=== PATIENT | female | born 1995 | race Caucasian/White ===

== ENCOUNTER 2021-04-12 19:39 | Emergency (ER) | payer OTHER, SELFPAY ==
[2021-04-12 19:54] VITALS: BP 111/62; PULSE 113; RESP 18; TEMP 36.5; O2SAT 98; BMI 27.4
[2021-04-12 21:03] VITALS: RESP 18
--- NOTE | 2021-04-12 22:20 | ED.PSYCH ---
HPI - Psych General Chief Complaint: Psychiatric Symptoms Stated Complaint: section 12 Time Seen by Provider: 04/12/21 22:14 Source: patient Mode of arrival: EMS Limitations: no limitations History of Present Illness HPI Narrative: 26-year-old female with no significant past medical history who presents via EMS after her mother called 911 because she went to her apartment and could not wake her up. Mom told EMS that she found a note in her daughter's journal stating that she wants to sleep and never wake up. When I questioned patient about this she states she was told by her therapist to make list of good things and list of bad things going on in her life and that is all she did. She states she has no suicidal ideations, homicidal ideations, she states she has no plan to hurt herself and she has never hurt herself before. She does not have access to any weapons. She has no history of cutting. She does see a therapist and takes Lexapro daily. Patient states she is attending two different colleges and has a 4.0 GPA, she is also personal trainer. She states she area has several good things going on in her life right now. Patient denies any drug or alcohol use today. Related Data Home Medications Medication Instructions Recorded Confirmed escitalopram oxalate [Lexapro] 1 tab PO DAILY 04/12/21 04/12/21 lorazepam 1 - 2 tab PO DAILY PRN 04/12/21 04/12/21 trazodone 1 tab PO BEDTIME 04/12/21 04/12/21 Allergies Allergy/AdvReac Type Severity Reaction Status Date / Time Penicillins [PCN] Allergy Unknown UNKNOWN Verified 04/12/21 20:03 Review of Systems Review of Systems: Yes all other systems are reviewed and are negative [facility] Social History Social History Advance Directives: No Advance Directives Information Provided: No Patient : No Physical Exam Vital Signs: Vital Signs: Last Vital Signs Temp 97.7 F 04/12/21 19:54 Pulse 113 H 04/12/21 19:54 Resp 18 04/12/21 21:03 BP 111/62 04/12/21 19:54 Pulse Ox 98 04/12/21 19:54 Body Mass Index 27.4 Const: Other: Pleasant General: cooperative, healthy appearing, comfortable and no acute distress Nutritional Appearance: average body habitus Orientation/consciousness: patient oriented x3 HENMT: Head: Yes normal to inspection Eyes: General: appearance normal, both eyes and all related structures Neck: Neck: Yes normal visual inspection, Yes full ROM and Yes supple Resp: Effort & Inspection: normal respiratory effort and able to speak in complete sentences Skin: Lesions: lesion noted (small scars all over the body, very small, well-healed, no signs of infec) Neuro: General: patient oriented x3 Cognition (Neuro): normal cognition Gait exam (Neuro): Normal gait present Psych: Appearance: grossly normal Mental Status: mental status grossly normal Speech and movement: Normal speech and movement present Affect: normal affect Attitude: cooperative Thought process: Normal thought process present Thought content: Normal thought content present, suicidality and no homicidality Insight: Good insight present (Psych) Judgement: Good judgement present (Psych) Course Course Course Narrative: 26-year-old female with no significant past medical history who presents via EMS after her mother called 911 because she went to her apartment and could not wake her up. Mom told EMS that she found a note in her daughter's journal stating that she wants to sleep and never wake up. VSS. Patient denies SI, HI or plan. Patient is very pleasant, speaks about her future and her Education with enthusiasm. Will get a crisis consult, likely discharge home with follow-up to her existing therapist. Will get GARSIA. Reevaluation(s) Reevaluation #1: GARSIA negative, other from the Care team's for with patient, she agrees patient is not suicidal risk, very high functioning, future oriented young lady with an existing therapist taking her depression medication daily. Will discharge with follow-up to therapist. MDM - Psych Lab Data Labs: Lab Results 04/12/21 04/12/21 Range/Units 22:48 22:48 Urine Test NEGATIVE (NEGATIVE) Urine Opiates Screen Not Detected (Not Detect) Ur Barbiturates Screen Not Detected (Not Detect) Ur Phencyclidine Scrn Not Detected (Not Detect) Ur Amphetamines Screen Not Detected (Not Detect) U Benzodiazepines Scrn Not Detected (Not Detect) Urine Cocaine Screen Not Detected (Not Detect) U Marijuana (THC) Screen Not Detected (Not Detect) Discharge Plan Discharge Clinical Impression: Acute anxiety Patient Disposition: Home, Self-Care Instructions: Depression (ED), Anxiety (ED) Additional Instructions: Please be sure to follow-up with your therapist. If you have any thoughts of harming yourself or anyone else, please call 911 right away. Prescriptions: No Action trazodone 50 mg tablet 1 tab PO BEDTIME RF: 0 lorazepam 1 mg tablet 1 - 2 tab PO DAILY PRN (Reason: Anxiety) RF: 0 escitalopram oxalate [Lexapro] 10 mg tablet 1 tab PO DAILY RF: 0
[2021-04-12 22:58] LABS: Urine Pregnancy NEGATIVE (NEGATIVE)
[2021-04-12 22:59] LABS: UPreg QC Valid YES
[2021-04-12 23:17] LABS: Amphetamine Screen Urine Not Detected (Not Detect); Barbiturates, Urine Not Detected (Not Detect); Benzodiazepines Screen Urine Not Detected (Not Detect); Cannabinoid Screen Urine Not Detected (Not Detect); Cocaine Screen Urine Not Detected (Not Detect); Opiate Screen Urine Not Detected (Not Detect); Phencyclidine Screen Urine Not Detected (Not Detect)
--- NOTE | 2021-04-13 00:21 | PC.NURSE ---
JEN faxed and called.
--- NOTE | 2021-04-13 00:25 | MHC.CARE ---
[facility] unable to provide a clinician to complete evaluation until the morning shift. CARE team met with pt to screen level of risk for harm to self or others. Pt was pleasant on approach, with euthymic mood and congruent affect, observed to also be anxious and restless, which pt expressed as being due to the situation she has found herself in. 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 At the recommendation of her therapist, pt has been using her journal to express negative thoughts, the darkest thoughts I could possibly have, and then follow this with positive and optimistic thoughts. Pt indicated that she opted to listen to music and take a nap before writing the positive thoughts portion of her journal entry. When her mother showed up to the pt's apartment and found her sleeping, with her headphones on, and after seeing the journal entry the pt's mother contacted 911 for fear that the pt had harmed herself, as she wasn't waking up when her mother poked her. Pt denied experiencing any thoughts of or suicide, denied history of suicidality or engagement in self harm, and denied any thoughts or urges to harm others. No signs or symptoms of psychosis or disturbances of thought or perception were observed or reported. Pt has a therapist through [facility], however is in the process of transferring to the [facility]. With regards to med compliance, pt had missed the last two doses of her prescribed lexapro, which she resumed taking the medication today. CARE team consulted with ED provider who agreed that pt is safe for discharge and does not require further behavioral health evaluation or stabilization at this time.
== END 2021-04-13 00:55 | disposition home or self-care (01) ==
PROVIDERS: Physician Assistant; Emergency Provider Internal Medicine
DX: F41.1 Generalized anxiety disorder (principal); F43.0 Acute stress reaction; Z79.899 Other long term (current) drug therapy
CPT/HCPCS: 80307; 81025; 99283

== ENCOUNTER 2021-04-29 17:53 | Emergency (ER) | payer OTHER, SELFPAY ==
--- NOTE | 2021-04-29 | ECG_ITS ---
Test Reason : SOB Blood Pressure : / mmHG Vent. Rate : 126 BPM Atrial Rate : 126 BPM P-R Int : 112 ms QRS Dur : 068 ms QT Int : 318 ms P-R-T Axes : 076 032 -10 degrees QTc Int : 460 ms Sinus tachycardia Nonspecific ST and T wave abnormality Abnormal ECG No previous ECGs available Referred By: Martha Hatfield Electronically Signed By:Joe Sullivan
--- NOTE | ~2021-04-29 | XR_ITS ---
EXAMINATION: PORTABLE CHEST 1 VIEW CLINICAL INFORMATION: wheezing . COMPARISON: No recent pertinent prior studies are available for comparison. TECHNIQUE: Portable frontal view of the chest was obtained. FINDINGS: The lungs are well expanded. Mild increased perihilar markings right more than left. No superimposed focal infiltrate, effusion, edema, or pneumothorax. Cardiac and mediastinal silhouettes are within normal limits for technique. No acute bony abnormality seen. XR/XR chest 1V IMPRESSION: Mild increased perihilar markings right more so than left. Etiology of this is uncertain. Small airways disease would be possible. Early infiltrate considered less likely. Consider short interval follow-up chest x-ray as needed.
[2021-04-29 18:00] VITALS: BP 141/52; PULSE 131; RESP 38; O2SAT 99; BMI 23.5
[2021-04-29] MEDS: Magnesium Sulfate/H2O 2 GM/50 ML PIGGYBACK IV (18:04)
[2021-04-29 18:10] VITALS: PULSE 126; O2SAT 96
[2021-04-29] MEDS: Albuterol Sulfate (0.083%) 2.5 MG/3 ML VIAL.NEB 10 MG INHALE (18:10)
[2021-04-29 18:16] LABS: MANUAL DIFF FLAG NO
[2021-04-29 18:18] LABS: Basophils Percent Auto 0.3 % (0-2); Eosinophils Absolute Auto 0.6 X10*3/uL (0.0-0.4); Eosinophils Percent Auto 5.2 % (0-4); Hematocrit 40.6 % (37-47); Hemoglobin 13.5 g/dl (12.0-16.0); Imm Gran Abs Auto 0.04 X10*3/uL (0.00-0.03); Imm Gran Pct Auto 0.3 % (0.0-0.4); Lymphocytes Absolute Auto 3.8 X10*3/uL (1.2-4.9); Mean Corpuscular HGB Conc 33.3 g/dl (31.0-35.0); Mean Corpuscular Hemoglobin 28.2 pg (27.0-33.0); Mean Corpuscular Volume 84.8 fL (80-98); Mean Platelet Volume 9.2 fL (9.4-12.3); Monocytes Absolute Auto 0.7 X10*3/uL (0.1-1.2); Monocytes Percent Auto 5.7 % (2-11); Neutrophils Absolute Auto 6.3 X10*3/uL (2.0-8.3); Neutrophils Percent Auto 55.5 % (45-73); Platelet Count 347 X10*3/uL (160-400); Red Blood Count 4.79 X10*6/uL (4.20-5.50); Red Cell Distribution Width 12.7 % (11.0-16.0); White Blood Count 11.4 X10*3/uL (4.8-10.8)
--- NOTE | 2021-04-29 18:21 | PC.NURSE ---
Pt developed rash w/ hives over all extremities- given 50mg Iv Benadryl, no further respiratory distress, less i/e wheezing noted.
[2021-04-29] MEDS: diphenhydrAMINE HCL 50 MG/ML VIAL IVPUSH (18:22)
[2021-04-29 18:31] LABS: COVID-19 Test Negative (Negative); IDNOW Serial# 9DD0AD1C
[2021-04-29 18:47] LABS: Alanine Aminotransferase 18 U/L (0-31); Albumin Level 3.7 g/dL (3.5-5.0); Alkaline Phosphatase 80 U/L (39-117); Anion Gap 11 (12-20); Aspartate Amino Transferase 24 U/L (5-31); Bilirubin Total 0.6 mg/dL (0.0-1.0); Blood Urea Nitrogen 8 mg/dL (9-16); Calcium 8.6 mg/dL (8.4-10.2); Carbon Dioxide 24 mmol/L (22-29); Chloride 106 mmol/L (96-108); Creatinine Clr Calc Pharmacy 104.4; Estimated Glomerular Filt Rate > 60; Glucose Random 191 mg/dL (60-115); Potassium 3.4 mmol/L (3.3-5.1); Sodium 138 mmol/L (135-145); Total Protein 6.2 g/dL (6.5-8.0)
--- NOTE | 2021-04-29 19:28 | ED_ITS ---
HPI - Asthma General Chief Complaint: Asthma Stated Complaint: Asthma Attack Time Seen by Provider: 04/29/21 18:01 Source: patient and EMS Mode of arrival: EMS Limitations: no limitations History of Present Illness HPI Narrative: 26 y/o female with history of asthma, depression, anxiety who presents to the ER with acute onset of SOB and wheezing that started when she woke up from a nap today. 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 She reports feeling at her baseline health when she went to bed. At baseline she uses her rescue albuterol inhaler a couple times per week. Triggers are environmental allergies. When she woke up today she had shortness of breath, audible wheezing and coughing, dry. She used in her inhaler and waited about 20 minutes but had no improvement so her girlfriend called 911. On EMS arrival she was in moderate respiratory distress with RR in the 30s and she was hypoxic to 78% on room air. She was drooling. She was given IM epinepherine, 125 mg IV solumedrol and a duoneb en route. She arrives to the ER tachycardic 120s, RR 30s with audible wheezing. She is able to answer questions appropriately in 2-3 word sentences. MD complaint: shortness of breath and wheezing Onset (ago): hour(s) (1) Severity: severe and worse than usual Context: allergen exposure Associated symptoms: dry cough and chest pain Asthma History: childhood onset Treatments Prior to Arrival: inhaled bronchodilator Related Data Current Asthma Therapy: inhaled bronchodilator Home Medications Medication Instructions Recorded Confirmed escitalopram oxalate [Lexapro] 1 tab PO DAILY 04/12/21 04/12/21 lorazepam 1 - 2 tab PO DAILY PRN 04/12/21 04/12/21 trazodone 1 tab PO BEDTIME 04/12/21 04/12/21 Previous Rx's Medication Instructions Recorded albuterol sulfate 1.25 mg INHALATION Q4-6H PRN #15 ml 04/29/21 albuterol sulfate [ProAir HFA] 2 puff INHALATION Q6H PRN #6.7 g 04/29/21 prednisone 10 mg PO PER PKG DIR #48 ea 04/29/21 Allergies Allergy/AdvReac Type Severity Reaction Status Date / Time Penicillins [PCN] Allergy Unknown UNKNOWN Verified 04/12/21 20:03 Review of Systems Review of Systems: Constitutional: No Fever, No Chills ENT/Mouth: No sore throat, No Rhinorrhea, No Swallowing Difficulty Eyes: No Eye Pain, No Swelling, No Redness Cardiovascular: + Chest Pain, + SOB, No Orthopnea, No Edema Respiratory: + Cough, No Sputum, + Wheezing, + dyspnea Gastrointestinal: No Nausea, No Vomiting, No Diarrhea, No abdominal Pain, No Hematochezia, No Melena Genitourinary: No Dysuria, No Urinary Frequency, No Hematuria Musculoskeletal: No joint pain, No Myalgias Skin: No Skin Lesions, No rash Neuro: No Weakness, No Numbness, No Dizziness, No Headache Psych: + Anxiety/Panic, No Depression Heme/Lymph: No Bruising, No Lymphadenopathy Endocrine: No Polyuria, No Polydipsia PMFSH Past Medical History Attestation statement: The following information was validated with the patient. Medical History (Updated 04/29/21 @ 20:42 by BOB Ferrari) Allergies Asthma Social History Social History Advance Directives: No Advance Directives Information Provided: Yes Patient : No Physical Exam Vital Signs: Vital Signs: Last Vital Signs Pulse 108 H 04/29/21 19:59 Resp 18 04/29/21 19:59 BP 99/54 L 04/29/21 19:59 Pulse Ox 100 04/29/21 19:59 Body Mass Index 23.5 Appearance: Alert. Oriented X3. No acute distress. Eyes: Pupils equal, round and reactive to light. ENT: Pharynx normal. Neck: Normal inspection. Neck supple. CVS: Tachycardic, regular rhythm. Pulses normal. Respiratory: Moderate respiratory distress with RR high 20-low 30's. Diffuse inspiratory and expiratory wheezes throughout, prolonged expiratory phase. Abdomen: Soft and nontender. +BS x4 Skin: Skin warm and dry. Normal skin color. Normal skin turgor. No rashes. Extremities: No lower extremity edema. Neuro: Oriented X 3. No motor deficit. No sensory deficit. Course Course Course Narrative: 26 y/o female with history of asthma presenting with acute onset of SOB and wheezing that started today. Hypoxic and in respiratory distress on EMS arrival. Arrives on NRB, SpO2 100% with diffuse wheezing. Mg++, hour long albuterol ordered. CXR, EKG and lab workup. Reevaluation(s) Reevaluation #1: Reassessed in the middle of her nebulizer treatment. Wheezing already starting to improve but patient developed diffuse urtacaria on her thighs, itchy. IV Benadryl ordered. She has had hives a few times in the past, cause unknown. She reports burning in her throat with the neb but no sensation of throat swelling. No facial swelling. Will continue to monitor closely. Reevaluation #2: Significant improvement in respiratory status. Now on RA with SPO2 98%. Speaking in complete sentences. Wheezing mostly resolved, slight residual wheeze in LLL. She has been monitored in the ER for 3 hours and she is greatly improved. She would like to go home. Will treat for asthma exacerbation with PO prednisone taper and give new refills for her neb and inhaler both of which are . Encouraged to f/u with Pulm. Patient agrees with plan. MDM - Asthma Differential Diagnosis Differential diagnosis: Likely Acute exacerbation and Status asthmaticus Lab Data Attestation: I reviewed the patient's lab results. Result diagrams: 04/29/21 18:12 04/29/21 18:12 Labs: Lab Results 04/29/21 04/29/21 04/29/21 Range/Units 18:12 18:12 18:12 WBC 11.4 H (4.8-10.8) X10*3/uL RBC 4.79 (4.20-5.50) X10*6/uL Hgb 13.5 (12.0-16.0) g/dl Hct 40.6 (37-47) % MCV 84.8 (80-98) fL MCH 28.2 (27.0-33.0) pg MCHC 33.3 (31.0-35.0) g/dl RDW 12.7 (11.0-16.0) % Plt Count 347 (160-400) X10*3/uL MPV 9.2 L (9.4-12.3) fL Immature Gran % (Auto) 0.3 (0.0-0.4) % Neut % (Auto) 55.5 (45-73) % Lymph % (Auto) 33.0 (20-40) % Jay % (Auto) 5.7 (2-11) % Eos % (Auto) 5.2 H (0-4) % Baso % (Auto) 0.3 (0-2) % Lymph # (Auto) 3.8 (1.2-4.9) X10*3/uL Jay # (Auto) 0.7 (0.1-1.2) X10*3/uL Eos # (Auto) 0.6 H (0.0-0.4) X10*3/uL Baso # (Auto) 0.0 (0.0-0.2) X10*3/uL Abs Immat Gran (auto) 0.04 H (0.00-0.03) X10*3/uL Absolute Neuts (auto) 6.3 (2.0-8.3) X10*3/uL Absolute Nucleated RBC 0.000 (0.0-0.012) X10*3/uL Nucleated RBC % (auto) 0.0 (0.0-0.2) /100WBC Sodium 138 (135-145) mmol/L Potassium 3.4 (3.3-5.1) mmol/L Chloride 106 (96-108) mmol/L Carbon Dioxide 24 (22-29) mmol/L Anion Gap 11 L (12-20) BUN 8 L (9-16) mg/dL Creatinine 0.78 (0.5-1.4) mg/dL Estim Creat Clear Calc 104.4 Estimated GFR > 60 Random Glucose 191 H (60-115) mg/dL Calcium 8.6 (8.4-10.2) mg/dL Total Bilirubin 0.6 (0.0-1.0) mg/dL AST 24 (5-31) U/L ALT 18 (0-31) U/L Alkaline Phosphatase 80 (39-117) U/L Troponin I High Sens (<3.5-17.0) ng/L Total Protein 6.2 L (6.5-8.0) g/dL Albumin 3.7 (3.5-5.0) g/dL COVID-19 (ZENOBIA) Negative (Negative) COVID-19 Clin Com See Note 04/29/21 Range/Units 18:12 WBC (4.8-10.8) X10*3/uL RBC (4.20-5.50) X10*6/uL Hgb (12.0-16.0) g/dl Hct (37-47) % MCV (80-98) fL MCH (27.0-33.0) pg MCHC (31.0-35.0) g/dl RDW (11.0-16.0) % Plt Count (160-400) X10*3/uL MPV (9.4-12.3) fL Immature Gran % (Auto) (0.0-0.4) % Neut % (Auto) (45-73) % Lymph % (Auto) (20-40) % Jay % (Auto) (2-11) % Eos % (Auto) (0-4) % Baso % (Auto) (0-2) % Lymph # (Auto) (1.2-4.9) X10*3/uL Jay # (Auto) (0.1-1.2) X10*3/uL Eos # (Auto) (0.0-0.4) X10*3/uL Baso # (Auto) (0.0-0.2) X10*3/uL Abs Immat Gran (auto) (0.00-0.03) X10*3/uL Absolute Neuts (auto) (2.0-8.3) X10*3/uL Absolute Nucleated RBC (0.0-0.012) X10*3/uL Nucleated RBC % (auto) (0.0-0.2) /100WBC Sodium (135-145) mmol/L Potassium (3.3-5.1) mmol/L Chloride (96-108) mmol/L Carbon Dioxide (22-29) mmol/L Anion Gap (12-20) BUN (9-16) mg/dL Creatinine (0.5-1.4) mg/dL Estim Creat Clear Calc Estimated GFR Random Glucose (60-115) mg/dL Calcium (8.4-10.2) mg/dL Total Bilirubin (0.0-1.0) mg/dL AST (5-31) U/L ALT (0-31) U/L Alkaline Phosphatase (39-117) U/L Troponin I High Sens < 3.5 (<3.5-17.0) ng/L Total Protein (6.5-8.0) g/dL Albumin (3.5-5.0) g/dL COVID-19 (ZENOBIA) (Negative) COVID-19 Clin Com ECG Data Attestation: I personally reviewed and interpreted this ECG as follows: ECG interpretation date: 04/29/21 ECG interpretation time: 20:32 Interpretation: sinus tachycardia, HR 126, normal SC interval, nonspecific ST & T wave abnormality Critical Care Time Critical Care Time Critical Care Time: Yes Total Critical Care Time: 40 Attestation: I attest to critical care time spent caring for this patient with severe asthma attack requiring multiple interventions to prevent further decompensation. Time spent reviewing records, imaging and labs as well as frequent bedside reassessments of pulmonary status. Discharge Plan Discharge Clinical Impression: Asthma with acute exacerbation Qualifiers: Asthma severity: unspecified severity Asthma persistence: intermittent Qualified Code(s): J45.21 - Mild intermittent asthma with (acute) exacerbation Patient Disposition: Home, Self-Care Instructions: Asthma (ED) Additional Instructions: Take the prescribed medications as directed. If you develop hives again, take 50 mg of Benadryl. Recommend using your inhaler or nebulizer a few times per day for the next 3 days. Recommend following up with Pulmonology. If you have recurrent difficultly breathing or severe wheezing call 911 or come back to the ER right away for further evaluation. Prescriptions: New prednisone 10 mg tablets,dose pack 10 mg PO PER PKG DIR Qty: 48 RF: 0 albuterol sulfate [ProAir HFA] 90 mcg/actuation HFA aerosol inhaler 2 puff inhalation Q6H PRN (Reason: shortness of breath or wheezing) Qty: 6.7 RF: 0 albuterol sulfate 1.25 mg/3 mL solution for nebulization 1.25 mg inhalation Q4-6H PRN (Reason: shortness of breath or wheezing) Qty: 15 RF: 0 No Action trazodone 50 mg tablet 1 tab PO BEDTIME RF: 0 lorazepam 1 mg tablet 1 - 2 tab PO DAILY PRN (Reason: Anxiety) RF: 0 escitalopram oxalate [Lexapro] 10 mg tablet 1 tab PO DAILY RF: 0 Referrals: Aníbal Phillips MD [Physician] - 1 week (asthma)
[2021-04-29 19:59] VITALS: BP 99/54; PULSE 108; RESP 18; O2SAT 100
[2021-04-29 20:17] LABS: Troponin-I High Sensitivity < 3.5 ng/L (<3.5-17.0)
== END 2021-04-29 20:55 | disposition home or self-care (01) ==
PROVIDERS: Physician Assistant; Emergency Provider Internal Medicine; PCP Internal Medicine
DX: J45.21 Mild intermittent asthma with (acute) exacerbation (principal); R00.0 Tachycardia, unspecified; Z20.822 Contact with and (suspected) exposure to COVID-19; L50.9 Urticaria, unspecified
CPT/HCPCS: 36415; 71045; 80053; 84484; 85025; 87635; 93005; 94640; 94644; 96365; 96366; 96374; 99284; 99291; J1200; J3475

== ENCOUNTER 2021-08-27 14:37 | Emergency (ER) | payer OTHER, SELFPAY ==
[2021-08-27 14:44] VITALS: BP 106/72; PULSE 108; RESP 20; TEMP 36.7; O2SAT 99; BMI 26.9
--- NOTE | 2021-08-27 15:03 | ED.ALLEREA ---
HPI - Allergic Reaction General Chief complaint: Allergic Reaction Stated complaint: allergic reaction, diff breathing Time Seen by Provider: 08/27/21 15:00 Source: patient Mode of arrival: ambulatory Limitations: no limitations History of Present Illness HPI narrative: 26 y/o female with history of asthma, allergy to IcyHot with diffuse body hives who presents to the ER with acute onset of itchy hives all over her body that started shortly after she used topical OTC patches for her back pain. She took the patches off and administered her EpiPen to herself. She was SOB so she took her inhaler as well. She denies any facial swelling, mouth, lip or tongue swelling. MD complaint: allergic reaction and hives Onset (ago): hour(s) (1) Known history of allergy to: topical pain patches Symptoms: rash and itching Severity: similar to previous episodes Treatment prior to arrival: epinephrine Previous Allergic Reaction History: prior ED visit(s) Related Data Home Medications Medication Instructions Recorded Confirmed escitalopram oxalate 10 mg tablet 1 tab PO DAILY 04/12/21 04/12/21 (Lexapro) lorazepam 1 mg tablet 1 - 2 tab PO DAILY PRN 04/12/21 04/12/21 trazodone 50 mg tablet 1 tab PO BEDTIME 04/12/21 04/12/21 Previous Rx's Medication Instructions Recorded albuterol sulfate 1.25 mg/3 mL 1.25 mg INHALATION Q4-6H PRN #15 ml 04/29/21 solution for nebulization albuterol sulfate 90 mcg/actuation 2 puff INHALATION Q6H PRN #6.7 g 04/29/21 aerosol inhaler (ProAir HFA) prednisone 10 mg tablets in a dose 10 mg PO PER PKG DIR #48 ea 04/29/21 pack Allergies Allergy/AdvReac Type Severity Reaction Status Date / Time menthol [From Icy Hot] Allergy Severe Hives Verified 08/27/21 14:49 methyl salicylate Allergy Severe Hives Verified 08/27/21 14:49 [From Icy Hot] Penicillins [PCN] Allergy Unknown UNKNOWN Verified 08/27/21 14:43 Review of Systems Review of Systems: Constitutional: No Fever, No Chills ENT/Mouth: No sore throat, No Rhinorrhea, No Swallowing Difficulty Eyes: No Eye Pain, No Swelling, No Redness Cardiovascular: No Chest Pain, + SOB, No Orthopnea, No Edema Respiratory: No Cough, No Sputum, No Wheezing, No dyspnea Gastrointestinal: No Nausea, No Vomiting, No Diarrhea, No abdominal Pain Genitourinary: No Dysuria, No Urinary Frequency, No Hematuria Musculoskeletal: No joint pain, No Myalgias Skin: No Skin Lesions, + rash Neuro: No Weakness, No Numbness, No Dizziness, No Headache Psych: + Anxiety/Panic, No Depression Heme/Lymph: No Bruising, No Lymphadenopathy Endocrine: No Polyuria, No Polydipsia [facility] Past Medical History Medical History (Updated 08/27/21 @ 15:59 by BOB Ferrari) Allergies Asthma Social History Social History Advance Directives: No Advance Directives Information Provided: No Patient : No Physical Exam Vital Signs: Vital Signs: Last Vital Signs Temp 98.0 F 08/27/21 14:44 Pulse 108 H 08/27/21 14:44 Resp 20 08/27/21 14:44 BP 106/72 08/27/21 14:44 Pulse Ox 99 08/27/21 14:44 Body Mass Index 26.9 Appearance: Alert. Oriented X3. No acute distress. Eyes: Pupils equal, round and reactive to light. ENT: Pharynx normal. Lips and mouth normal without swelling, airway patent. Neck: Normal inspection. Neck supple. CVS: Tachycardic, regular rhythm. Pulses normal. Respiratory: No respiratory distress. Breath sounds normal. Abdomen: Soft and nontender. +BS x4 Skin: Skin warm and dry. Normal skin color. Normal skin turgor. Erythematous raised urticarial rash on bilateral upper extremities diffus on back, check and abdomen. Extremities: No lower extremity edema. Neuro: Oriented X 3. No motor deficit. No sensory deficit. Course Course Course Narrative: 26 y/o female presenting with allergic reaction to topical pain patches OTC, hx similar episodes. Gave herself EpiPen at home. Tachycardic on arrival with diffuse hives. Will give IV solumedrol, IV benadryl and IV Pepcid. Will monitor closely and reasess. Reevaluation(s) Reevaluation #1: Significant improvement in rash. She is stable for discharge home. Recommended continuing antihistamines today. Patient agrees with plan. Critical Care Time Critical Care Time Critical Care Time: Yes Total Critical Care Time: 35 Attestation: I have personally provided critical care time exclusive of time spent on separately billable procedures. Time includes review of records, frequent reassessments at the bedside and monitoring for potential decompensation. Intervention performed as documented. Discharge Plan Discharge Clinical Impression: Allergic reaction Qualifiers: Encounter type: initial encounter Qualified Code(s): T78.40XA - Allergy, unspecified, initial encounter Patient Disposition: Home, Self-Care Instructions: General Allergic Reaction (ED) Additional Instructions: Recommend taking another dose of Benadryl 50 mg later today. Avoid all topical pain patches and creams. Follow up with your doctor as needed. If you develop new or worsening symptoms call 911 or come back to the ER for further evaluation. Prescriptions: No Action trazodone 50 mg tablet 1 tab PO BEDTIME RF: 0 lorazepam 1 mg tablet 1 - 2 tab PO DAILY PRN (Reason: Anxiety) RF: 0 escitalopram oxalate [Lexapro] 10 mg tablet 1 tab PO DAILY RF: 0 prednisone 10 mg tablets,dose pack 10 mg PO PER PKG DIR Qty: 48 RF: 0 albuterol sulfate [ProAir HFA] 90 mcg/actuation HFA aerosol inhaler 2 puff inhalation Q6H PRN (Reason: shortness of breath or wheezing) Qty: 6.7 RF: 0 albuterol sulfate 1.25 mg/3 mL solution for nebulization 1.25 mg inhalation Q4-6H PRN (Reason: shortness of breath or wheezing) Qty: 15 RF: 0
[2021-08-27] MEDS: Famotidine/PF 20 MG/2 ML VIAL IVPUSH (15:16)
[2021-08-27] MEDS: methylPREDNISolone Sod Succ 125 MG/2 ML VIAL IVPUSH (15:16)
[2021-08-27] MEDS: diphenhydrAMINE HCL 50 MG/ML VIAL IVPUSH (15:17)
--- NOTE | 2021-08-27 15:45 | PC.NURSE ---
pt alert and oriented x3, vss . Pt states this afternoon she placed a pain patch to her back and soon after she started breaking out into a full body rash. pt gave herself one dose of epi then came to the ed. She denies sob/dizziness/headache.
[2021-08-27 16:10] VITALS: BP 106/67; PULSE 88; RESP 20; TEMP 36.8; O2SAT 99
--- NOTE | 2021-08-27 16:19 | PC.NURSE ---
pt alert and oriented, vss. pt medically cleared for discharge.
== END 2021-08-27 16:17 | disposition home or self-care (01) ==
PROVIDERS: Emergency Provider Emergency Medicine Emergency Medical Services
DX: L50.0 Allergic urticaria (principal); R06.02 Shortness of breath; Z79.899 Other long term (current) drug therapy
CPT/HCPCS: 96374; 96375; 99284; J1200; J2930

== ENCOUNTER 2021-12-16 02:35 | Emergency (ER) | payer OTHER, SELFPAY ==
--- NOTE | 2021-12-16 02:59 | PC.NURSE ---
pt coming for covid testing, no s/s of resp distress, talking in full sentences, pt seeking covid testing and referred to the testing area in the morning.
== END 2021-12-16 03:27 | disposition left against medical advice (07) ==
PROVIDERS: Emergency Provider Emergency Medicine
DX: R50.9 Fever, unspecified (principal); M79.10 Myalgia, unspecified site; Z20.822 Contact with and (suspected) exposure to COVID-19

== ENCOUNTER 2021-12-19 11:39 | Emergency (ER) | payer OTHER, SELFPAY ==
[2021-12-19 12:44] VITALS: BP 123/87; PULSE 90; RESP 19; TEMP 36.6; O2SAT 100; BMI 25.4
--- NOTE | 2021-12-19 14:16 | ED_ITS ---
HPI - Allergic Reaction General Chief complaint: Allergic Reaction Stated complaint: Allergic reaction Time Seen by Provider: 12/19/21 14:15 Source: patient Mode of arrival: ambulatory Limitations: no limitations History of Present Illness HPI narrative: Patient is a 26-year-old female with past medical history of asthma and allergies. She presents to the emergency department for pruritic hives that she developed to her chest bilateral arms and bilateral legs past 10:00 a.m. this morning. She took Benadryl 50 mg in the hives resolved to light red, flat patches on the arms and legs. She denies any new medications, new soaps, detergents, body lotions, consuming any new food or drink. Denies fevers, chills, difficulty breathing, no facial or lip swelling, sensation of impending doom, nausea, vomiting, abdominal pain, chest pain, palpitations. Just prior to the onset she was receiving PCR COVID-19 test. She does endorse that 4 days ago she began having cold-like symptoms, for which she tested positive on home COVID-19 test. She does have an EpiPen at home, but did not feel that she needed to use this. Onset (ago): hour(s) Exposure: unknown Known history of allergy to: I[employer] Symptoms: rash and itching Severity: mild Treatment prior to arrival: benadryl Previous Allergic Reaction History: prior ED visit(s) Related Data Home Medications Medication Instructions Recorded Confirmed escitalopram oxalate 10 mg tablet 1 tab PO DAILY 04/12/21 04/12/21 (Lexapro) lorazepam 1 mg tablet 1 - 2 tab PO DAILY PRN 04/12/21 04/12/21 trazodone 50 mg tablet 1 tab PO BEDTIME 04/12/21 04/12/21 Previous Rx's Medication Instructions Recorded albuterol sulfate 1.25 mg/3 mL 1.25 mg (3 mL) INHALATION Q4-6H 04/29/21 solution for nebulization PRN #15 ml albuterol sulfate 90 mcg/actuation 2 puff INHALATION Q6H PRN #6.7 g 04/29/21 aerosol inhaler (ProAir HFA) prednisone 10 mg tablets in a dose 10 mg PO PER PKG DIR #48 ea 04/29/21 pack Allergies Allergy/AdvReac Type Severity Reaction Status Date / Time menthol [From [employer]] Allergy Severe Hives Verified 12/19/21 13:32 methyl salicylate Allergy Severe Hives Verified 12/19/21 13:32 [From [employer]] Penicillins [PCN] Allergy Unknown UNKNOWN Verified 12/19/21 13:32 Review of Systems Review of Systems: Constitutional : No Fever, No Chills ENT/Mouth : No oral swelling, No Hoarseness, No Swallowing Difficulty Eyes: No Eye Pain, No Swelling, No Redness Cardiovascular : No Chest Pain, No SOB Respiratory : No Cough, No Sputum, No Wheezing, No Smoke Exposure, No Dyspnea Gastrointestinal : No Nausea, No Vomiting, No Diarrhea, No abdominal Pain Genitourinary : No Dysuria, No Urinary Frequency, No Hematuria Musculoskeletal : No joint pain, No Myalgias, No Joint Swelling Skin : No Skin Lesions, positive rash Neuro : No Weakness, No Numbness, No Headache Psych : No Anxiety/Panic, No Depression Heme/Lymph: No Bruising, No Lymphadenopathy Endocrine : No Polyuria, No Polydipsia All other systems reviewed and are negative PMFSH Past Medical History Attestation statement: The following information was validated with the patient. Source: old records reviewed Medical History Allergies Asthma Social History Social History Advance Directives: No Advance Directives Information Provided: No Patient : No Physical Exam Vital Signs: Vital Signs: Last Vital Signs Temp 98 F 12/19/21 12:44 Pulse 90 12/19/21 12:44 Resp 19 12/19/21 12:44 BP 123/87 12/19/21 12:44 Pulse Ox 100 12/19/21 12:44 BMI result Body Mass Index 25.4 Vital signs have been reviewed as normal and appeared to be correct. Blood pressure normal.? Heart rate normal.? Respiration rate normal. Temperature normal.? Oxygen saturation normal. Appearance: Alert.?Oriented to person, place and time. No acute distress.?Normal affect. Eyes: Pupils equal, round and reactive to light.? ENT: Pharynx normal, no tonsillar edema, tongue is normal, no hoarseness of voice Neck: Normal inspection.? Neck supple.?? CVS: Heart sounds normal. Normal heart rate and rhythm.? Pulses normal.?? Respiratory: No respiratory distress.? Lung sounds clear to auscultation bilaterally?? Abdomen: Soft and non-tender. Skin: Scattered flat mildly erythematous patches to bilateral arms and legs with linear abrasions. Skin warm and dry.? Normal skin color.? Normal skin turgor.?? Extremities: No lower extremity edema.? Neuro: Moves all extremities spontaneously. Sensation intact bilaterally. No focal neuro deficits. Course Course Course Narrative: Patient is a 26-year-old female being evaluated for urticaria of unknown origin that responded to Benadryl taken prior to evaluation. Currently, she is in no apparent distress, speaking in clear full sentences there is no airway involvement or angioedema, there is no wheezing. She is well-appearing. Discussed potential causes for allergens including environmental exposures, and possible relation to her current COVID-19 infe ction. She does have an EpiPen at home which she feels comfortable with using. Patient to be discharged home, will continue to use Benadryl as needed, discussed return precautions to the emergency department, and advised to establish care with a primary care provider as she may require outpatient workup further should the urticaria persist to occur. MDM - Allergic Reaction Medical Records Attestation: I reviewed the patient's medical records. Discharge Plan Discharge Clinical Impression: Urticaria Patient Disposition: Home, Self-Care Instructions: Urticaria (ED) Additional Instructions: You evaluated in the emergency department for your concern about hives to your chest arms and legs. It is unclear exactly what you had this reaction to. It is possible that it is related to environmental allergens, food, or possibly due to your COVID-19 infection. You can continue using Benadryl as needed hives, and itching. You should return to the emergency department if you having difficulty breathing, feeling as though your throat is closing, chest pain, palpitations, nausea persistent vomiting, abdominal pain, fevers, chills, or any new or worsening symptoms or concerns. You should establish care with a prima ry care provider, so that you may follow up, particularly if the hives persist for greater than 1 week. Prescriptions: No Action trazodone 50 mg tablet 1 tab PO BEDTIME RF: 0 lorazepam 1 mg tablet 1 - 2 tab PO DAILY PRN (Reason: Anxiety) RF: 0 escitalopram oxalate [Lexapro] 10 mg tablet 1 tab PO DAILY RF: 0 prednisone 10 mg tablets,dose pack 10 mg PO PER PKG DIR Qty: 48 RF: 0 albuterol sulfate [ProAir HFA] 90 mcg/actuation HFA aerosol inhaler 2 puff inhalation Q6H PRN (Reason: shortness of breath or wheezing) Qty: 6.7 RF: 0 albuterol sulfate 1.25 mg/3 mL solution for nebulization 1.25 mg inhalation Q4-6H PRN (Reason: shortness of breath or wheezing) Qty: 15 RF: 0
== END 2021-12-19 14:47 | disposition home or self-care (01) ==
PROVIDERS: Emergency Provider Internal Medicine
DX: L50.9 Urticaria, unspecified (principal); J45.909 Unspecified asthma, uncomplicated
CPT/HCPCS: 99282; 99283

== ENCOUNTER 2022-02-04 11:58 | Outpatient (REF) | payer OTHER, SELFPAY ==
[2022-02-04 13:45] LABS: MANUAL DIFF FLAG NO
[2022-02-04 14:12] LABS: Basophils Absolute Auto 0.1 X10*3/uL (0.0-0.2); Basophils Percent Auto 0.7 % (0-2); Eosinophils Absolute Auto 0.9 X10*3/uL (0.0-0.4); Eosinophils Percent Auto 12.3 % (0-4); Hematocrit 40.9 % (37.0-47.0); Hemoglobin 13.2 g/dl (12.0-16.0); Imm Gran Abs Auto 0.03 X10*3/uL (0.00-0.03); Imm Gran Pct Auto 0.4 % (0.0-0.4); Lymphocytes Absolute Auto 1.7 X10*3/uL (1.2-4.9); Lymphocytes Percent Auto 23.3 % (20-40); Mean Corpuscular HGB Conc 32.3 g/dl (31.0-35.0); Mean Corpuscular Hemoglobin 27.8 pg (27.0-33.0); Mean Corpuscular Volume 86.3 fL (80.0-98.0); Mean Platelet Volume 9.6 fL (9.4-12.3); Monocytes Absolute Auto 0.5 X10*3/uL (0.1-1.2); Monocytes Percent Auto 6.4 % (2-11); Neutrophils Absolute Auto 4.1 x10*3/uL (2.0-8.3); Neutrophils Percent Auto 56.9 % (45-73); Platelet Count 294 X10*3/uL (160-400); Red Blood Count 4.74 X10*6/uL (4.20-5.50); Red Cell Distribution Width 12.6 % (11.0-16.0); White Blood Count 7.2 X10*3/uL (4.8-10.8)
[2022-02-04 14:28] LABS: Anion Gap 9 (12-20); Blood Urea Nitrogen 12 mg/dL (9-16); Calcium 9.1 mg/dL (8.4-10.2); Carbon Dioxide 28 mmol/L (22-29); Chloride 105 mmol/L (96-108); Cholesterol 138 mg/dL; Estimated Glomerular Filt Rate > 60; Glucose Random 80 mg/dL (60-115); Potassium 3.7 mmol/L (3.3-5.1); Sodium 138 mmol/L (135-145)
== END 2022-02-04 11:59 | disposition home or self-care (01) ==
LOC: HO.10HDL 11:58
PROVIDERS: Visit Provider Internal Medicine
DX: Z00.00 Encounter for general adult medical examination without abnormal findings (principal)
CPT/HCPCS: 36415; 80048; 82465; 85025

== ENCOUNTER 2022-11-01 11:57 | Emergency (ER) | payer OTHER, SELFPAY ==
[2022-11-01 12:41] VITALS: BP 121/74; PULSE 114; RESP 18; TEMP 36.2; O2SAT 100; BMI 25.4
--- NOTE | 2022-11-01 12:45 | ED.GENADULT ---
HPI - General Adult General Chief complaint: General Medical <Mirtha Zapata MD - Last Filed: 11/01/22 12:50> Stated complaint: Lumps in Throat <Mirtha Zapata MD - Last Filed: 11/01/22 12:50> Time Seen by Provider: 11/01/22 15:09 <Mirtha Zapata MD - Last Filed: 11/01/22 12:50> Source: patient <BOB Arredondo - Last Filed: 11/01/22 16:35> Mode of arrival: ambulatory <BOB Arredondo - Last Filed: 11/01/22 16:35> History of Present Illness HPI narrative: 27-year-old female with a past medical history of asthma presenting to the ED complaining of painful sores to back of throat in genital area x 3-4 days. Admits symptoms began after having intercourse with new sexual partner. Reports dry cough last week. Reports associated burning and dysuria. Denies fever, difficulty/inability to swallow, ear pain, abdominal pain, flank pain, vaginal bleeding, vaginal discharge. <BOB Arredondo - Last Filed: 11/01/22 16:35> Onset (ago): day(s) <BOB Arredondo - Last Filed: 11/01/22 16:35> Related Data Home medications: Home Medications Medication Instructions Recorded Confirmed escitalopram oxalate 10 mg tablet 1 tab PO DAILY 04/12/21 04/12/21 (Lexapro) lorazepam 1 mg tablet 1 - 2 tab PO DAILY PRN Anxiety 04/12/21 04/12/21 trazodone 50 mg tablet 1 tab PO BEDTIME 04/12/21 04/12/21 Previous Rx's Medication Instructions Recorded albuterol sulfate 1.25 mg/3 mL 1.25 mg (3 mL) inhalation Q4-6H 04/29/21 solution for nebulization PRN shortness of breath or wheezing #15 mL albuterol sulfate 90 mcg/actuation 2 puff inhalation Q6H PRN 04/29/21 aerosol inhaler (ProAir HFA) shortness of breath or wheezing #6.7 grams prednisone 10 mg tablets in a dose 10 mg PO PER PKG DIR #48 ea 04/29/21 pack cefdinir 300 mg capsule 300 mg PO Q12H 7 days #14 caps 11/01/22 valacyclovir 1 gram tablet 1,000 mg PO TID 10 days #30 tabs 11/01/22 (Valtrex) <Mirtha Zapata MD - Last Filed: 11/01/22 12:50> Allergies/adverse reactions: Allergies Allergy/AdvReac Type Severity Reaction Status Date / Time menthol [From [employer]] Allergy Severe Hives Verified 11/01/22 12:47 methyl salicylate Allergy Severe Hives Verified 11/01/22 12:47 [From [employer]] Penicillins [PCN] Allergy Unknown UNKNOWN Verified 11/01/22 12:47 <Mirtha Zapata MD - Last Filed: 11/01/22 12:50> Review of Systems Review of Systems: Constitutional: No Fever, No Chills, No Fatigue, No Malaise ENT/Mouth: No Ear Pain, No Nasal Congestion, No Sinus Pain, No Hoarseness, + sore throat, No Rhinorrhea, No Swallowing Difficulty Eyes: No Eye Pain, No Swelling, No Redness, No Vision Changes Cardiovascular: No Chest Pain, No SOB, No Edema, No Palpitations Respiratory: + Cough, No Sputum, No Wheezing, No Smoke Exposure, No Dyspnea Gastrointestinal: No Nausea, No Vomiting, No Diarrhea, No Constipation, No Abdominal pain Genitourinary: No irregular bleeding, + Dysuria, No Urinary Frequency, No Hematuria, No Urgency, No Flank Pain Musculoskeletal: No joint pain, No Myalgias, No Joint Swelling Skin: + Skin Lesions, No rash Neuro: No Weakness, No Headache P <BOB Arredondo - Last Filed: 11/01/22 16:35> Yes all other systems are reviewed and are negative <BOB Arredondo - Last Filed: 11/01/22 16:35> Constitutional: Constitutional: Reports as per HPI <BOB Arredondo - Last Filed: 11/01/22 16:35> [facility] Past Medical History Attestation statement: The following information was validated with the patient. <BOB Arredondo - Last Filed: 11/01/22 16:35> Medical History: Medical History Allergies Asthma <Mirtha Zapata MD - Last Filed: 11/01/22 12:50> Social History Social History: Social History Advance Directives: No Advance Directives Information Provided: No <Mirtha Zapata MD - Last Filed: 11/01/22 12:50> Physical Exam ED Vital Signs: Vital Signs - 24 hr 11/01/22 12:41 Temperature 97.1 F Pulse Rate 114 H Respiratory Rate 18 Blood Pressure 121/74 Pulse Oximetry 100 Oxygen Delivery Method Room Air BMI result Body Mass Index 25.4 <Mirtha Zapata MD - Last Filed: 11/01/22 12:50> Vital Signs - 24 hr 11/01/22 12:41 Temperature 97.1 F Pulse Rate 114 H Respiratory Rate 18 Blood Pressure 121/74 Pulse Oximetry 100 Oxygen Delivery Method Room Air BMI result Body Mass Index 25.4 <BOB Arredondo - Last Filed: 11/01/22 16:35> Const General: cooperative, healthy appearing and no acute distress <BBO Arredondo - Last Filed: 11/01/22 16:35> Orientation/consciousness: patient oriented x3 <BOB Arredondo - Last Filed: 11/01/22 16:35> Limitations: no limitations <BOB Arredondo - Last Filed: 11/01/22 16:35> HENMT Other: + edematous ulcerations noted to posterior oropharynx. + left-sided submandibular lymphadenopathy noted <BOB Arredondo - Last Filed: 11/01/22 16:35> Head: Yes normal to inspection and Yes atraumatic <BOB Arredondo - Last Filed: 11/01/22 16:35> Ears: hearing grossly normal bilaterally, external ears normal and mastoids normal <BOB Arredondo - Last Filed: 11/01/22 16:35> General nose exam: Normal external nose present <BOB Arredondo - Last Filed: 11/01/22 16:35> Face and sinus: Yes normal facial exam <BOB Arredondo - Last Filed: 11/01/22 16:35> Mouth: no drooling and Abnormal oral and palatal mucosa present <BOB Arredondo - Last Filed: 11/01/22 16:35> Throat: Yes posterior oropharynx normal, Yes tonsils normal, Yes uvula midline, No uvula laterally displaced and No uvular edema <Elizabeth Galloway PA - Last Filed: 11/01/22 16:35> Eyes General: appearance normal, both eyes and all related structures <Elizabeth Galloway PA - Last Filed: 11/01/22 16:35> EOM: EOMs intact bilaterally <Elizabeth Galloway PA - Last Filed: 11/01/22 16:35> Neck Neck: Yes normal visual inspection, Yes no lymphadenopathy, Yes no meningeal signs and Yes supple <Elizabeth Galloway PA - Last Filed: 11/01/22 16:35> Resp Effort & Inspection: normal respiratory effort, no nasal flaring, no respiratory distress and no stridor <Elizabeth Galloway PA - Last Filed: 11/01/22 16:35> Auscultation: clear to auscultation bilaterally <Elizabeth Galloway PA - Last Filed: 11/01/22 16:35> Cardio Rate: regular rate <Elizabeth Galloway PA - Last Filed: 11/01/22 16:35> Heart sounds: S1 normal heart sound present and S2 normal heart sound present <Elizabeth Galloway PA - Last Filed: 11/01/22 16:35> GI Inspection: Yes normal to inspection <Elizabeth Galloway PA - Last Filed: 11/01/22 16:35> Palpation (GI): Soft to palpation, nontender, no guarding and not rigid <Elizabeth Galloway PA - Last Filed: 11/01/22 16:35> Other: +ulcerations noted to labia majora and perianally. No dischage or bleeding <Elizabeth Galloway PA - Last Filed: 11/01/22 16:35> Skin Rashes: no rashes <BOB Arredondo - Last Filed: 11/01/22 16:35> Wounds: no wounds <BOB Arredondo - Last Filed: 11/01/22 16:35> Neuro General: patient oriented x3, tone normal and no meningeal signs <Elizabeth Gallwoay PA - Last Filed: 11/01/22 16:35> Gait exam (Neuro): Normal gait present <BOB Arredondo - Last Filed: 11/01/22 16:35> Extrem General: Yes normal to inspection <BOB Arredondo - Last Filed: 11/01/22 16:35> Course Course Course Narrative: 27F p/w concerns for having oral and genital sexual interactions 1 week with someone she is unsure of STI hx and now complaining of throat bumps and sore throat as well as concern for genital discharge. VS reviewed GEN: NAD HEENT: NC/AT, EOMI/PERRLA, Ears wnl, Throat mild erythema minimal tonsillar bumps. - CT/NG UA and throat <Mirtha Zapata MD - Last Filed: 11/01/22 12:50> 27F p/w concerns for having oral and genital sexual interactions 1 week with someone she is unsure of STI hx and now complaining of throat bumps and sore throat as well as concern for genital discharge. VS reviewed GEN: NAD HEENT: NC/AT, EOMI/PERRLA, Ears wnl, Throat mild erythema minimal tonsillar bumps. - CT/NG UA and throat -1600--GC and chlamydia negative. COVID-19 negative. Will treat patient empirically for herpes with Valtrex, 1st dose given in the ED. Discussed need to refrain from any sexual contact until cultures result -1635--UA contaminated however with greater than 50 wbc's and moderate leuk esterase will empirically treat for unilateral lymphadenopathy and UTI with cefdinir <BOB Arredondo - Last Filed: 11/01/22 16:35> Medications Administered Discontinued Medications Generic Name Dose Route Start Last Admin Trade Name Freq PRN Reason Stop Dose Admin Acetaminophen 650 mg 11/01/22 15:52 11/01/22 16:08 Acetaminophen 325 Mg Tablet PO 11/01/22 15:53 650 mg ONCE ONE Administration Valacyclovir HCl 1,000 mg 11/01/22 15:49 11/01/22 16:08 Valacyclovir Hcl 1,000 Mg Tablet PO 11/01/22 15:50 1,000 mg ONCE ONE Administration <Mirtha Zapata MD - Last Filed: 11/01/22 12:50> Medications Administered Discontinued Medications Generic Name Dose Route Start Last Admin Trade Name Doug PRN Reason Stop Dose Admin Acetaminophen 650 mg 11/01/22 15:52 11/01/22 16:08 Acetaminophen 325 Mg Tablet PO 11/01/22 15:53 650 mg ONCE ONE Administration Valacyclovir HCl 1,000 mg 11/01/22 15:49 11/01/22 16:08 Valacyclovir Hcl 1,000 Mg Tablet PO 11/01/22 15:50 1,000 mg ONCE ONE Administration <BOB Arredondo - Last Filed: 11/01/22 16:35> Medical Decision Making Medical Decision Making MDM Narrative: 27-year-old female with a past medical history of asthma presenting to the ED complaining of painful sores to back of throat in genital area times 3-4 days. On exam mildly tachycardic likely from pain, posterior or pharyngeal ulcers in genital ulcers noted consistent with herpes & left-sided unilateral lymphadenopathy. Lower suspicion for strep pharyngitis, viral illness. Rule out UTI. Plan: UA, , COVID-19 testing, herpes culture, CT/NG <BOB Arredondo - Last Filed: 11/01/22 16:35> Differential Diagnoses: Differential diagnosis Differential Diagnosis: The differential diagnosis associated with the patient?s presentation includes: <BOB Arredondo Last Filed: 11/01/22 16:35> Independent historian (e.g., spouse, EMS, friend): Independent historian (e.g., spouse, EMS, friend) <BOB Arredondo - Last Filed: 11/01/22 16:35> Non-ED record review: Review of External (Non-ED) Record <BOB Arredondo - Last Filed: 11/01/22 16:35> Tests considered but not performed: Tests Considered But Not Performed The following testing was considered but ultimately not selected after discussion with patient/family. <BOB Arredondo - Last Filed: 11/01/22 16:35> Chronic conditions affecting care (e.g., diabetes, HTN): Chronic conditions affecting care (e.g., diabetes, HTN) <BOB Arredondo Last Filed: 11/01/22 16:35> Discharge Plan Discharge Clinical Impression: Herpes, Lymphadenopathy <Mirtha Zapata MD - Last Filed: 11/01/22 12:50> Patient Disposition: Home, Self-Care <Mirtha Zapata MD - Last Filed: 11/01/22 12:50> Instructions: Sexually Transmitted Diseases (ED), Oral Herpes Simplex Virus Infections (ED) <Mirtha Zapata MD - Last Filed: 11/01/22 12:50> Additional Instructions: You tested negative for gonorrhea and chlamydia. You do have a urinary tract infection. We sent off herpes cultures which will be back in a couple days, we will call you with positive results only. Valtrex is an antiviral medication, please take as prescribed. In addition take cefdinir which is an antibiotic for your inflamed lymph node and UTI. Additionally take ibuprofen and Tylenol as needed Refrain from any sexual contact until you know the results of her cultures. If symptoms persist or worsen, you are unable to swallow, unable to urinate, or have fever please return to emergency department please follow up with [facility] for further STI testing <Mirtha Zapata MD - Last Filed: 11/01/22 12:50> Prescriptions: New valacyclovir [Valtrex] 1 gram tablet 1,000 mg PO TID 10 Days Qty: 30 0RF cefdinir 300 mg capsule 300 mg PO Q12H 7 Days Qty: 14 0RF No Action trazodone 50 mg tablet 1 tab PO BEDTIME lorazepam 1 mg tablet 1 - 2 tab PO DAILY PRN (Reason: Anxiety) escitalopram oxalate [Lexapro] 10 mg tablet 1 tab PO DAILY prednisone 10 mg tablets,dose pack 10 mg PO PER PKG DIR Qty: 48 0RF Rx Instructions: Take 4 tabs x3 days then 3 tabs x3 days, then 2 tabs x3 days then 1 tab x3 days. Discard remainder albuterol sulfate [ProAir HFA] 90 mcg/actuation HFA aerosol inhaler 2 puff inhalation Q6H PRN (Reason: shortness of breath or wheezing) Qty: 6.7 0RF albuterol sulfate 1.25 mg/3 mL solution for nebulization 1.25 mg inhalation Q4-6H PRN (Reason: shortness of breath or wheezing) Qty: 15 0RF <Mirtha Zapata MD - Last Filed: 11/01/22 12:50> Referrals: [facility] [Provider Group] ED Physician,Generic [Emergency Provider] - 1 week <Mirtha Zapata MD - Last Filed: 11/01/22 12:50>
[2022-11-01 13:31] LABS: Strep A Nucleic Acid Negative (Negative)
[2022-11-01 15:19] LABS: CT PCR NOT DETECTED (Not Detect.); NG PCR NOT DETECTED (Not Detect.)
[2022-11-01] MEDS: Acetaminophen 325 MG TABLET 650 MG PO (16:08)
[2022-11-01] MEDS: valACYclovir HCL 1,000 MG TABLET 1000 MG PO (16:08)
[2022-11-01 16:13] LABS: Strep A Nucleic Acid Negative (Negative); UPreg QC Valid YES; Urine Pregnancy NEGATIVE (NEGATIVE)
[2022-11-01 16:14] LABS: Appearance Urine Clear; Color Urine Yellow; Glucose Urine UA Negative (Negative); Leukocyte Esterase Urine Moderate (2+) (Negative); Nitrite Urine Negative (Negative); PH 6.5 (5.0-9.0); UMIC TRIGGER UACC YES; Urine Blood Negative (Negative); Urine Ketones Negative (Negative); Urine Protein Negative (Neg-Trace)
[2022-11-01 16:29] LABS: Bacteria Urine 1+ (None Seen); Hyaline Casts Urine 0-2 /LPF (0-2); RBC Urine 0-2 /HPF (0-2); UACC Culture Trigger YES; WBC Urine >50 /HPF (0-5)
[2022-11-01 16:51] VITALS: BP 103/56; PULSE 77; RESP 18; TEMP 36.7; O2SAT 98
== END 2022-11-01 17:01 | disposition home or self-care (01) ==
PROVIDERS: Physician Assistant; Student in an Organized Health Care Education/Training Program; Emergency Provider Emergency Medicine
DX: B00.9 Herpesviral infection, unspecified (principal); R59.1 Generalized enlarged lymph nodes; Z20.822 Contact with and (suspected) exposure to COVID-19; Z79.899 Other long term (current) drug therapy
CPT/HCPCS: 36415; 81001; 81025; 87086; 87255; 87491; 87591; 87651; 99283; 99284